=== PATIENT | female | born 1955 | race Caucasian/White ===

== ENCOUNTER 2017-09-12 16:23 | Emergency (ER) | payer OTHER ==
[~2017-09-12] VITALS: Wt 93.5 kg
[2017-09-12] MEDS ORDERED: KETOROLAC 15 MG INJ IM STA (17:56)
--- NOTE | 2017-09-12 17:58 | ERD ---
ER Documentation Chief Complaint Chief Complaint behind r. knee and back pain s/p fall 7 days ago HPI This 61-year-old female presents to emergency department for evaluation of mechanical trip and fall. Patient reports that 10 days ago she took a step and is not sure if her knee gave out or she missed the step but she fell outside onto left side, patient denies any other injury at that time, did not hit her head or lose consciousness .Reports that she found posterior right knee bruising 2 days after initial fall, reports no pain at that time, started having right knee pain 5 days after fall. She reports that she has been using 600 mg [id number] ibuprofen every 6 hours without relief of pain, she also reports lumbar pain, difficulty ambulating, denies change in bowel or bladder, dizziness, or change in behavior. ROS All systems reviewed and are negative except as per history of present illness. Allergies Allergies: Coded Allergies: No Known Allergy (Unverified , 09/12/17) PMhx/Soc Hx Alcohol Use: No Hx Substance Use: No Physical Exam Vitals Vital Signs Date Time Temp Pulse Resp B/P Pulse Ox O2 Delivery O2 Flow Rate FiO2 09/12/17 16:35 98.1 20 20 162/97 98 Well-nourished well-appearing well-hydrated 61-year-old female history of hypertension, hypertension noted 162/97 today in emergency department Physical Exam Const: Well-nourished, well-hydrated, well-appearing 61-year-old female no acute distress Head: Atraumatic Eyes: Normal Conjunctiva ENT: Normal External Ears, Nose and Mouth. Neck: Full range of motion.. Resp: Cardio: Abd: Skin: Back: Back Exam: Skin: No bruising or rash Compartments: Soft Motor: Normal flexion and extension of bilateral hip/knee/ ankle/foot ambulating with limp Sensation: Intact to light touch throughout Bones: No midline TTP Ext: Lower Extremity -right knee: Skin: No laceration or obvious deformity, no overlying erythema or warmth knee is without obvious asymmetry Compartments: Soft, quadriceps tenderness. Motor: Full active range of motion hip/ankle/foot. Patient has difficulty bearing weight but is able to ambulate with a limp, decreased right knee range of motion with flexion, full extension Sensation: Intact to light touch all surfaces. Katrina's test if equivocal, patient has lateral and medial knee tenderness. Bones: Nontender pelvis/knee/proximal tibia/ malleoli/foot, Joints: Palpable posterior knee edema and spongy edema under patella. Pulses/Perfusion: 2+ DP, Capillary refill < 2 seconds Neur: Awake and alert Psych: Normal Mood and Affect Results 24 hrs Current Medications Medications (Trade) Dose Ordered Sig/Lucian Route PRN Reason Start Time Stop Time Status Last Admin Dose Admin Ketorolac Tromethamine (Toradol) 15 mg ONCE STAT IM 09/12/17 17:56 09/12/17 19:46 DC 09/12/17 19:57 Procedures/MDM PROCEDURE: XR Knee. CLINICAL INDICATION: Fall TECHNIQUE: Three views of the left knee are available for review. COMPARISON: None available FINDINGS: There is no acute fracture or dislocation. The joint spaces are maintained. No significant joint effusion is present. The soft tissues are unremarkable. RPTAT: AA IMPRESSION: 1. Unremarkable left knee x-ray series. Electronically viewed and signed by .Garima Garcia MD, MD on 09/12/2017 19: 10 PROCEDURE: XR Lumbar Spine. CLINICAL INDICATION: Back pain. Status post fall. TECHNIQUE: 3 views of the lumbar spine are available for review COMPARISON: None available FINDINGS: The normal lumbar lordosis is preserved. Alignment is intact. No acute fracture or dislocation is seen. No radiopaque foreign body is identified. The vertebral body heights are all normal. The intervertebral disk heights are remarkable for mild discogenic disease and disc space narrowing at the L5-S1 level. There is transitional vertebral anatomy with partial lumbarization of S1. The posterior elements are remarkable for facet arthropathy at the L5-S1 level. On the frontal view, there is only minimal subtle undulation and dextroscoliosis centered at the L2 level. Paraspinous soft tissues are grossly unremarkable. Abundant aortic atherosclerotic vascular calcifications. IMPRESSION: 1. Subtle minimal dextroscoliosis centered at the L2 level. 2. 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 3. Mild discogenic disease and disc space narrowing at the L5-S1 level. 4. Significant posterior element facet arthropathy at the L5-S1 level. 5. No acute fracture or dislocation is identified. Electronically viewed and signed by .Jagdeep Gutierrez MD, on 09/12/2017 19:21 This 61-year-old female presents to emergency department for evaluation of left lumbar pain, pain involves her left side status post mechanical trip and fall onto left side without obvious bruising or change in range of motion, subsequent right knee pain developed after fall with edema, posterior knee bruising, and pain with weightbearing. Patient is ambulating with limp, emergency room course includes history and physical exam, diagnostic testing, and pain control. Radiology interpretation of right knee is unremarkable for fracture or dislocation, the joint spaces are maintained, no significant joint effusion is present. Soft tissues unremarkable. Radiology interpretation of lumbar spine series, with subtle minimal dextroscoliosis centered at L2 level, transitional vertebrae anatomy with partial lumbarization of S1. Mild discogenic disease and disc space narrowing at L5-S1 level, significant posterior element facet arthropathy at the L5-S1 level. No acute fracture or dislocation is identified.. Plan to discharge patient home with a [place] wrap, [employer] 5/325 count of 7 for severe pain, Naprosyn 500 mg 1 tab p.o. twice daily 10 days., Pepcid 20 mg 1 tab p.o. twice daily 10 days while taking Naprosyn. Follow-up with primary physician for referral to orthopedic specialists, physical therapy, or pain management for degenerative joint disease lumbar spine. Departure Diagnosis: Primary Impression: Knee pain Chronicity: acute Laterality: right Qualified Code: M25.561 - Acute pain of right knee Additional Impression: Osteoarthritis of lumbosacral spine Spinal osteoarthritis complication: unspecified spinal osteoarthritis Qualified Code: M47.817 - Spondylosis of lumbosacral region, unspecified spinal osteoarthritis complication status Condition: Good Patient Instructions: Knee Pain, Uncertain Cause, Osteoarthritis, Osteoarthritis: Common Sites, Osteoarthritis: Injections or Surgery Additional Instructions: Thank you for for coming to [facility] for your care today. Please ask your nurse or provider if you have questions about your care today and do not leave until all your questions have been answered. Please use any medications given as directed and follow-up with your doctor (or the doctor you were referred to) in the next 2-3 days. If you do not have a primary care doctor you may follow up at the [facility] (listed below). You may also use motrin and tylenol as needed for fever and/or pain unless instructed otherwise by your provider or nurse. Indications for more urgent follow-up have been discussed, but you may return to the Emergency Department at ANY time for any worrisome or worsening symptoms. If you have abdominal pain, please know that no test or exam you received is perfect and you should follow up within 8 hours for continued pain. If you had any imaging studies today, such as an X-Ray or CT Scan, these studies will be reviewed later by a radiologist. You will be called if there are important findings that were not identified today, so make sure the contact information you provided at registration is correct. If you received any narcotic pain control medicine today, such as Vicodin, Morphine or Dilaudid, your coordination and judgment may be affected for a number of hours. Please do not drive or operate heavy machinery, and you may want someone to assist you at home. If you were given a prescription for narcotic medication, be aware that it is very addictive- use sparingly and only if necessary. GARRETT BONILLA Sep 12, 2017 17:58
--- NOTE | 2017-09-12 19:10 | RADRPT ---
PROCEDURE: XR Knee. CLINICAL INDICATION: Fall TECHNIQUE: Three views of the left knee are available for review. COMPARISON: None available FINDINGS: There is no acute fracture or dislocation. The joint spaces are maintained. No significant joint e ffusion is present. The soft tissues are unremarkable. RPTAT: AA IMPRESSION: 1. Unremarkable left knee x-ray series. .Garima Garcia MD, MD Date Time Electronically viewed and signed by .Garima Garcia MD, on 09/12/2017 19:10 .T/
--- NOTE | 2017-09-12 19:21 | RADRPT ---
PROCEDURE: XR Lumbar Spine. CLINICAL INDICATION: Back pain. Status post fall. TECHNIQUE: 3 views of the lumbar spine are available for review COMPARISON: None available FINDINGS: The normal lumbar lordosis is preserved. Alignment is intact. No acute fracture or dislocation is seen. No radiopaque foreign body is identified. The vertebral body heights are all normal. The in tervertebral disk heights are remarkable for mild discogenic disease and disc space narrowing at the L5-S1 level. There is transitional vertebral anatomy with partial lumbarization of S1. The posteri or elements are remarkable for facet arthropathy at the L5-S1 level. On the frontal view, there is only minimal subtle undulation and dextroscoliosis centered at the L2 level. Paraspinous soft tissu es are grossly unremarkable. Abundant aortic atherosclerotic vascular calcifications. IMPRESSION: 1. Subtle minimal dextroscoliosis centered at the L2 level. 2. 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 3. Mild discogenic disease and disc space narrowing at the L5-S1 level. 4. Significant posterior element facet arthropathy at the L5-S1 level. 5. No acute fracture or dislocation is identified. RPTAT: HMJB .Jagdeep Gutierrez MD, Date Time Electronically viewed and signed by .Jagdeep Gutierrez MD, on 09/12/2017 19:21 .B/
[2017-09-12] MEDS ORDERED: FAMO-96 PO (20:24)
[2017-09-12] MEDS ORDERED: NAPR-260 PO (20:24)
[2017-09-12] MEDS ORDERED: HYDR-906 PO (20:25)
[2017-09-12 20:39] VITALS: BP 148/77; PULSE 72; RESP 20; TEMP 98.1
== END 2017-09-12 20:49 | disposition home or self-care (01) ==
LOC: FTE 16:23
DX: M25.561 Pain in right knee (principal); M47.817 Spondylosis without myelopathy or radiculopathy, lumbosacral region
CPT/HCPCS: 72100; 73562; 96372; J1885; Z7502